=== PATIENT | male | born 1945 | race Caucasian/White ===

== ENCOUNTER 2016-08-21 22:54 | Emergency (ER) | payer MEDICARE, OTHER ==
[2016-08-21 22:55] VITALS: BMI 30.4
[2016-08-21] MEDS ORDERED: NS 1,000 ML IV ONE (23:07)
--- NOTE | 2016-08-21 23:10 | EDPRACDOC ---
- General Information Chief Complaint: Altered Mental Status Stated Complaint: HYPERTENSIVE Time Seen by Provider: 08/21/16 23:06 Home Medications: Home Medications Aspirin (Enteric Coated) [Halfprin] 81 mg PO DAILY 04/23/14 Atorvastatin Calcium [Lipitor] 10 mg PO Q48H 04/23/14 Fluticasone/Salmeterol [Advair 250-50 Diskus] 1 puff INH BID 04/23/14 Multivitamin [Multiple Vitamins] 1 tab PO DAILY 04/23/14 Sertraline HCl [Zoloft] 200 mg PO QHS 04/23/14 Valsartan [Diovan] 80 mg PO DAILY 06/24/14 Zolpidem Tartrate [Ambien] 10 mg PO QHS PRN 11/05/14 Tamsulosin HCl [Flomax] 0.4 mg PO DAILY 12/04/14 Amlodipine [Norvasc] 10 mg PO DAILY 12/11/15 CYANOCOBALAMIN (Vitamin B-12) [Vitamin B-12] 1,000 mcg IM .QTUESDAY 12/11/15 Dicyclomine HCl [Bentyl] 10 mg PO BID 12/11/15 Donepezil HCl [Aricept] 10 mg PO HS 12/11/15 Hydrocodone Bit/Acetaminophen [Lawn 5-325 Tablet] 1 tab PO Q6H PRN 12/11/15 Memantine HCl [Namenda] 10 mg PO BID 12/11/15 Sitagliptin Phosphate [Januvia] 100 mg PO DAILY 12/11/15 Albuterol Sulfate [Proair Hfa] 2 puff INH Q4-6H PRN 12/25/15 Budesonide/Formoterol Fumarate [Symbicort 160-4.5 Mcg Inhaler] 2 puff INH BID Allergies/Adverse Reactions: Allergies Allergy/AdvReac Type Severity Reaction Status Date / Time azithromycin Allergy Diarrhea Verified 08/21/16 23:18 shellfish derived Allergy Anaphylaxis Verified 08/21/16 23:18 * - History of Present Illness Exact Onset of Symptoms: Unknown Date Symptoms Started: 08/21/16 HPI: PATIENT BEGAN ACTING VERY SOMNOLENT AFTER MEDICATIONS TONIGHT. PATIENT WAS FOUND WITH HYPOTENSION BY EMS ON ARRIVAL. NO WEAKNESS. Symptoms began: Gradually Duration: Since Onset Symptoms Currently: Reports: Still Present Altered Quality: Reports: Decreased Alertness Altered Severity: Reports: Moderate Recent Symptoms of: Reports: Medications/drug use Prehospital: Reports: EMT ED Past Medical History - History Reviewed Yes Nurses notes reviewed and agree except as marked Travel Outside of [place] in the Last 3 Months?: No - Patient Medical History Cardiac History: Reports: Hypertension, Hypercholesterolemia. Denies: Coronary Artery Disease, Congestive Heart Failure Respiratory History: Reports: Asthma, COPD, Pneumonia GI/ History: Reports: Renal Disease (Was told he had 50% of renal function by his PCP.), Gastroesophageal Reflux. Denies: IBD Musculoskeletal History: Reports: Arthritis (osteo), Osteoarthritis Psychological History: Reports: Depression, Anxiety. Denies: Substance Use Disorder Systemic History: Reports: Diabetes, Hypothyroidism Surgical History: Reports: Hernia Surgery, Other (Bilateral rotator cuff surgeries, surgery to repair a broken nose.) - Family Medical History Reports: Hypertension (MOTHER), Cardiac Disorders (On his mother's side.). Denies: Diabetes, Cancer, Stroke - Social Medical History Smoking Status: Never smoker Social History: Denies: Substance Use Disorder ETOH: None Substance Abuse: None Lives In: [facility] Facility EDM Review of Systems - Review of Systems ROS Negative Except as Marked: Yes All systems reviewed and were negative except as marked Constitutional: Fatigue. negative: Chills, Fever, Loss of Appetite, Weakness Eyes: No Symptoms Reported. negative: Redness, Blurred Vision, Double Vision, Discharge, Pain, Light Sensitive, Photophobia Ears: No Symptoms Reported. negative: Pain, Hearing Loss, Drainage, Ear Pulling Throat: No Symptoms Reported. negative: Pain, Swelling Nose: No Symptoms Reported. negative: Congestion, Bleeding, Discharge, Injection, Swelling, Deformity, Ecchymosis, Tender, Abrasion, Laceration Mouth: No Symptoms Reported. negative: Pain, Drooling Respiratory: No Symptoms Reported. negative: Cough, Brassy Cough, Barky Cough, Shortness of Breath, Wheezing, Hemoptysis Cardiovascular: No Symptoms Reported. negative: Chest Pain, Palpitations, Syncope, Edema, Orthopnea, PND, Skin Mottling, Cyanosis Gastrointestinal: No Symptoms Reported. negative: Pain, Constipation, Nausea, Vomiting, Diarrhea, Melena, Formula Intolerance Genitourinary: No Symptoms Reported. negative: Dysuria, Hematuria, Frequency, Discharge, Bleeding, Testicular Pain, Neurological: No Symptoms Reported. negative: Headache, Dizziness, Seizure, Numbness, Weakness, Speech Difficulty, Gait Difficulty Musculoskeletal: No Symptoms Reported. negative: Neck, Chestwall, Ribs, Back, Shoulder, Arm, Elbow, Forearm, Wrist, Hand, Pelvis, Hip, Femur, Knee, Leg, Ankle , Foot Integumentary: No Symptoms Reported. negative: Itching, Rash, Bruising, Wound Allergic/Immunologic: No Symptoms Reported. negative: Hives, Itching Hematologic: No Symptoms Reported. negative: Lymphadenopathy, Easy Bruising, Easy Bleeding Endocrine: No Symptoms Reported. negative: Weight Gain, Weight Loss Psychiatric: No Symptoms Reported. negative: Anxiety, Depression, Hallucinations, Insomnia, Suicidal - Physical Exam Constitutional: Confused, Somnolent Oriented to: Person, Place Last recorded Vital Signs: Oxygen Pulse Oxygen Saturation O2 Device Oxygen Flow Rate Fraction of Inspired Oxygen ( FIO2) - HEENT Head: Normal ( normocephalic) Eye Exam: Normal (PERRL, EOMI, Sclera white) Oropharynx: Normal (Pharynx:Moist without exudate,Gums-no swelling) Tympanic Membrane: Normal ENT EAC: Normal TMJ: Normal Nose: No Symptoms Reported (septum midline) Neck: Normal (FROM, trachea at midline) - Respiratory/Cardiovascular Respiratory: Normal - CTA (BBS clear to auscultation without adventitious sounds ) Cardiovascular: Normal (RRR without murmur, gallop or rub) - GI Auscultation: Normal (NABS) Palpation: Normal (Soft,No rebound or guarding, non distended) Tenderness: Non tender Rodriguez's Sign: Negative - Bladder: Normal - Musculoskeletal Back: Normal (Non-Tender) Extremities: Normal (Normal tone, Pulses 2+ No cyanosis or edema, FROM) - Integumentary Skin: Normal, Warm, Dry Lymphatics: Normal (no adenopathy) - Neurologic Memory Impaired: Short-term Motor Function: Normal (Normal tone, Pulses 2+ No cyanosis or edema, FROM) Cranial Nerve: Normal (CN II-X11 intact sensation, strength 5/5) Cerebellar: Normal Mood Description: Normal Perception: Normal - Differential Diagnosis CVA, Drug Overdose, Sepsis, UTI - Re-evaluation Re-evaluation 1 Re-evaluation Time: 01:17 (THERE IS CONCERN PATIENT MAY HAVE TAKEN HIS OWN MEDICATION THAT WAS LEFT IN HIS ROOM. DUE TO HIS DEMENTIA HE MAY NOT HAVE BEEN AWARE. PER FAMILY [place] CARDIA IS ALWAYS PRESENT.) - Results 08/21/16 23:30 08/21/16 23:30 - EKG EKG #1 EKG Time: 23:15 -: Yes EKG interpreted by me Rate: bpm: 41 Wisner: RAD Rhythm: SB Block: None Hypertrophy: None ST: Normal Decision Time to Discharge: 01:18 - Departure Yes I personally saw and evaluated the patient. Disposition: Home Condition: Good Final Diagnosis: Altered mental status Instructions: Dementia (GEN) Education/Counseling Given To: Patient Education/Counseling Given Regarding: Diagnosis, Treatment, Prognosis, Follow Up Referrals: Long Franklin Jr, MD [Primary Care Provider] - One Week Prescriptions: No Action Atorvastatin Calcium [Lipitor] 10 mg PO Q48H Fluticasone/Salmeterol [Advair 250-50 Diskus] 1 puff INH BID Sertraline HCl [Zoloft] 200 mg PO QHS Multivitamin [Multiple Vitamins] 1 tab PO DAILY Aspirin (Enteric Coated) [Halfprin] 81 mg PO DAILY Valsartan [Diovan] 80 mg PO DAILY Zolpidem Tartrate [Ambien] 10 mg PO QHS PRN PRN Reason: Sleep Or Insomnia Tamsulosin HCl [Flomax] 0.4 mg PO DAILY Hydrocodone Bit/Acetaminophen [Lawn 5-325 Tablet] 1 tab PO Q6H PRN PRN Reason: Pain Sitagliptin Phosphate [Januvia] 100 mg PO DAILY Donepezil HCl [Aricept] 10 mg PO HS Amlodipine [Norvasc] 10 mg PO DAILY Memantine HCl [Namenda] 10 mg PO BID CYANOCOBALAMIN (Vitamin B-12) [Vitamin B-12] 1,000 mcg IM .QTUESDAY Dicyclomine HCl [Bentyl] 10 mg PO BID Budesonide/Formoterol Fumarate [Symbicort 160-4.5 Mcg Inhaler] 2 puff INH BID Albuterol Sulfate [Proair Hfa] 2 puff INH Q4-6H PRN PRN Reason: Shortness Of Breath
[2016-08-21 23:16] VITALS: TEMP 98.4
[2016-08-21 23:47] LABS: AUTOMATED BASOPHIL 0.7 % (0-2); AUTOMATED EOSINOPHIL 6.9 % (0-5); AUTOMATED LYMPH 29.3 % (17-44); AUTOMATED MONOCYTE 14.4 % (3-10); AUTOMATED NEUTROPHIL 48.7 % (45-76); MPV 9.3 fL (7.4-10.4)
--- NOTE | 2016-08-22 00:06 | DIRPT ---
CLINICAL DATA: Altered mental status. EXAM: CT HEAD WITHOUT CONTRAST TECHNIQUE: Contiguous axial images were obtained from the base of the skull through the vertex without intravenous contrast. COMPARISON: 07/08/2016 FINDINGS: Skull and Sinuses:Negative for fracture or destructive process. No acute sinusitis. 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 Visualized orbits: Bilateral cataract resection. No acute finding. Brain: No evidence of acute infarction, hemorrhage, hydrocephalus, or mass lesion/mass effect. Frontal predominant atrophy with ex vacuo ventriculomegaly, stable. IMPRESSION: No acute finding or change from priors. Electronically Signed By: Brooks Barnes M.D. On: 08/22/2016 00:03
[2016-08-22 00:12] LABS: BLOOD UREA NITROGEN 30 MG/DL (9-20); CALC CORRECTED 9.9 MG/DL (8.4-10.2); CALCULATED OSMOLALITY 280 MOs/Kg (270-290); CHLORIDE 106 mEq/L (98-107); GLUCOSE 190 mg/dL (70-99); SODIUM LEVEL 140 mEq/L (137-146); TOTAL PROTEIN 6.1 G/DL (6.3-8.2)
--- NOTE | 2016-08-22 00:28 | DIRPT ---
CLINICAL DATA: Shortness of breath. EXAM: PORTABLE CHEST 1 VIEW COMPARISON: 07/05/2016 FINDINGS: Lower lung volumes from prior exam. The cardiomediastinal contours are unchanged. There is perihilar perivascular haziness. No consolidation, pleural effusion, or pneumothorax. No acute osseous abnormalities are seen. IMPRESSION: Perihilar perivascular haziness, may be technique related versus early edema. PA and lateral views may be helpful when patient is able. Electronically Signed By: Grisel García M.D. On: 08/22/2016 00:25
[2016-08-22 00:34] LABS: ALL NEG? NO
[2016-08-22 00:46] LABS: MDMA* NEG (NEGATIVE); METHAMPHETAMINES NEG (NEGATIVE); OXYCODONE NEG (NEGATIVE)
[2016-08-22 00:51] LABS: LEUKOCYTES/URINE NEG (NEGATIVE); NITRITE/URINE NEG (NEGATIVE); URINE OCCULT BLOOD NEG (NEG/TRACE)
[2016-08-22 02:23] VITALS: BP 111/70; PULSE 42
== END 2016-08-22 01:46 | disposition home or self-care (01) ==
LOC: ED 22:54
DX: R41.82 Altered mental status, unspecified (principal)
CPT/HCPCS: 36415; 70450; 71010; 80053; 80164; 80307; 81001; 83605; 84484; 85025; 85610; 85730; 87040; 87086; 93005; 99283